=== PATIENT | male | born 1975 | race Caucasian/White ===

== ENCOUNTER 2024-03-06 23:53 | Emergency (ER) | payer BC ==
[~2024-03-06] VITALS: Ht 167.6 cm; Wt 90.7 kg
[2024-03-07] MEDS ORDERED: Acetaminophen 325 MG TABLET PO ONE (00:25)
[2024-03-07] MEDS ORDERED: Acetaminophen 500 MG Tab ONE (02:54)
[2024-03-07] MEDS ORDERED: Acetaminophen 500 MG Tab PO ONE (03:00)
== END 2024-03-07 03:00 | disposition home or self-care (01) ==
LOC: ER 23:53
DX: S01.81XA Laceration without foreign body of other part of head, initial encounter (principal); Y04.8XXA Assault by other bodily force, initial encounter
CPT/HCPCS: 70450; 70486; 99283-25; A9270